=== PATIENT | male | born 1985 | race Caucasian/White ===

== ENCOUNTER 2025-08-11 07:07 | Outpatient (RCR) | payer MEDICARE, OTHER, SELFPAY | END 2025-08-11 23:59 | disposition home or self-care (01) | LOC: ROT 07:07 | PROVIDERS: ATTENDING PHYSICIAN Nurse Practitioner Family | DX: R25.1 Tremor, unspecified (principal); Z73.6 Limitation of activities due to disability; F41.9 Anxiety disorder, unspecified; F32.A Depression, unspecified | CPT/HCPCS: 97018; 97110; 97167; 97535 ==